=== PATIENT | male | born 1980 | race Two or more races ===

== ENCOUNTER 2018-03-10 18:38 | Emergency (ER) | payer OTHER ==
[2018-03-10] MEDS ORDERED: Clindamycin Phosphate 900 MG in Sodium Chloride 0.9% 100 ML IV ONE (19:04)
[2018-03-10] MEDS ORDERED: Sodium Chloride 0.9% 1,000 ML IV ONE ×2 (19:05→19:06)
[2018-03-10] MEDS ORDERED: Sodium Chloride 0.9% 10 ML Syringe FLUSH PRN (19:05)
[2018-03-10] MEDS ORDERED: Acetaminophen 325 MG Tab PO ONE (19:07)
[2018-03-10] MEDS ORDERED: HYDROmorphone 0.5 MG/0.5 ML SYRINGE IVPUSH ONE (19:07)
--- NOTE | 2018-03-10 19:14 | EDM.PDOC ---
ED HPI GENERAL MEDICAL PROBLEM - General Chief Complaint: Upper Extremity Injury/Pain Stated Complaint: LEFT ELBOW PAIN/INFECTION Time Seen by Provider: 03/10/18 18:53 Source of Information: Reports: Patient History Limitations: Reports: No Limitations - History of Present Illness INITIAL COMMENTS - FREE TEXT/NARRATIVE: Patient is a 37-year-old who presents the ED complaining of a red and hot swollen left elbow. Patient states he fell 2 weeks ago and had small abrasions. Sunday he hit his elbow at all at work. Developed some mild redness. Went to the walk-in clinic on Sunday and prescribed Medrol Dosepak and cephalexin. States the redness has doubled in size. Pain has worsened as well. [place] slightly warm today with no documented fever. Has been taking ibuprofen with minimal relief. He is able flex and extend at the elbow with limited range of motion secondary to pain and swelling to the posterior aspect of his elbow. He is a type II diabetic with unknown last hemoglobin A1c. There is no redness streaking up his arm. Denies any nausea/vomiting, history of MRSA, and Any additional complaints. Left Elbow Pain Score (Numeric/FACES): 10 - Related Data Allergies Allergy/AdvReac Type Severity Reaction Status Date / Time celecoxib [From Celebrex] Allergy Body Aches Verified 03/10/18 18:47 Home Meds: Home Meds Albuterol [Ventolin HFA] 2 puff INH Q4H PRN 03/10/18 [History] Cephalexin 500 mg PO QID 03/10/18 [History] Empagliflozin [Jardiance] 10 mg PO DAILY 03/10/18 [History] atorvaSTATin [Lipitor] 20 mg PO DAILY 03/10/18 [History] busPIRone [Buspar] 15 mg PO DAILY 03/10/18 [History] metFORMIN HCl [Metformin HCl] 1,000 mg PO BID 03/10/18 [History] methylPREDNISolone [Medrol] 1 tab PO ASDIRECTED 03/10/18 [History] Past Medical History Cardiovascular History: Reports: High Cholesterol Respiratory History: Reports: Asthma Psychiatric History: Reports: Anxiety Endocrine/Metabolic History: Reports: Diabetes, Type II Social & Family History - Family History Family Medical History: Noncontributory - Tobacco Use Smoking Status *Q: Never Smoker - Recreational Drug Use Recreational Drug Use: No Review of Systems - Review of Systems Review Of Systems: ROS reveals no pertinent complaints other than HPI. ED EXAM, GENERAL - Physical Exam Exam: See Below Exam Limited By: No Limitations General Appearance: Alert, WD/WN, No Apparent Distress Ears: Hearing Grossly Normal Nose: Normal Inspection Throat/Mouth: Normal Voice, No Airway Compromise Neck: Normal Inspection, Supple Respiratory/Chest: No Respiratory Distress, Lungs Clear, Normal Breath Sounds, No Accessory Muscle Use, Chest Non-Tender Cardiovascular: Normal Peripheral Pulses, Regular Rate, Rhythm, No Murmur Peripheral Pulses: 4+: Radial (L) Extremities: Other (Redness noted, circumferential to the left elbow with increased swelling posteriorly along the olecranon. No open wounds present. Increased warmth noted. Decreased range of motion noted flex extending secondary to increased swelling and pain to the left elbow. Patient has not had a septic joint. No sensory motor deficits distally.) Neurological: Alert, Oriented, CN II-XII Intact, Normal Cognition, No Motor/ Sensory Deficits Psychiatric: Normal Affect, Normal Mood Skin Exam: Warm, Dry, Intact Course - Vital Signs Last Recorded V/S: Last Vital Signs Temp 99.9 F 03/10/18 19:18 Pulse 93 03/10/18 18:43 Resp 16 03/10/18 18:43 BP 149/89 H 03/10/18 18:43 Pulse Ox 97 03/10/18 18:43 - Orders/Labs/Meds Orders: Active Orders 24 hr Category Date Time Status Peripheral IV Care [RC] . DIRECTED Care 03/10/18 19:05 Active CULTURE BLOOD [BC] Stat Lab 03/10/18 19:20 Received CULTURE BLOOD [BC] Stat Lab 03/10/18 19:35 Received Blood Culture x2 Reflex Set [OM.PC] Stat Oth 03/10/18 19:04 Ordered Peripheral IV Insertion Adult [OM.PC] Routine Oth 03/10/18 19:05 Ordered Labs: Laboratory Tests 03/10/18 03/10/18 03/10/18 Range/Units 09:05 19:05 19:05 WBC 16.39 H (4.23-9.07) K/mm3 RBC 5.32 (4.63-6.08) M/mm3 Hgb 17.1 (13.7-17.5) gm/L Hct 46.9 (40.1-51.0) % MCV 88.2 (79.0-92.2) fl MCH 32.1 (25.7-32.2) pg MCHC 36.5 H (32.2-35.5) g/dl RDW Std Deviation 39.4 (35.1-43.9) fL Plt Count 209 (163-337) K/mm3 MPV 10.0 (9.4-12.3) fl Neutrophils % (Manual) 82 H (40-60) % Band Neutrophils % 0 (0-10) % Lymphocytes % (Manual) 15 L (20-40) % Atypical Lymphs % 0 % Monocytes % (Manual) 3 (2-10) % Eosinophils % (Manual) 0 L (0.8-7.0) % Basophils % (Manual) 0 L (0.2-1.2) Toxic Granulation Few Platelet Estimate Adequate Plt Morphology Comment Normal RBC Morph Comment Normal PT 10.3 (9.5-12.1) SECONDS INR 0.94 APTT 27 (24-31) SECONDS Sodium 127 L (136-145) mEq/L Potassium 3.9 (3.5-5.1) mEq/L Chloride 91 L (98-107) mEq/L Carbon Dioxide 23 (21-32) mEq/L Anion Gap 16.9 H (5-15) BUN 18 (7-18) mg/dL Creatinine 1.2 (0.7-1.3) mg/dL Est Cr Clr Drug Dosing 96.09 mL/min Estimated GFR (MDRD) > 60 (>60) mL/min BUN/Creatinine Ratio 15.0 (14-18) Glucose 493 H (74-106) mg/dL Hemoglobin A1c (4.50-6.20) % Lactic Acid (0.4-2.0) mmol/L Calcium 9.6 (8.5-10.1) mg/dL Total Bilirubin 1.1 H (0.2-1.0) mg/dL AST 20 (15-37) U/L ALT 62 (16-63) U/L Alkaline Phosphatase 107 (46-116) U/L C-Reactive Protein 25.8 H* (<1.0) mg/dL Total Protein 7.8 (6.4-8.2) g/dl Albumin 3.7 (3.4-5.0) g/dl Globulin 4.1 gm/dL Albumin/Globulin Ratio 0.9 L (1-2) 03/10/18 03/10/18 Range/Units 19:05 19:20 WBC (4.23-9.07) K/mm3 RBC (4.63-6.08) M/mm3 Hgb (13.7-17.5) gm/L Hct (40.1-51.0) % MCV (79.0-92.2) fl MCH (25.7-32.2) pg MCHC (32.2-35.5) g/dl RDW Std Deviation (35.1-43.9) fL Plt Count (163-337) K/mm3 MPV (9.4-12.3) fl Neutrophils % (Manual) (40-60) % Band Neutrophils % (0-10) % Lymphocytes % (Manual) (20-40) % Atypical Lymphs % % Monocytes % (Manual) (2-10) % Eosinophils % (Manual) (0.8-7.0) % Basophils % (Manual) (0.2-1.2) Toxic Granulation Platelet Estimate Plt Morphology Comment RBC Morph Comment PT (9.5-12.1) SECONDS INR APTT (24-31) SECONDS Sodium (136-145) mEq/L Potassium (3.5-5.1) mEq/L Chloride (98-107) mEq/L Carbon Dioxide (21-32) mEq/L Anion Gap (5-15) BUN (7-18) mg/dL Creatinine (0.7-1.3) mg/dL Est Cr Clr Drug Dosing mL/min Estimated GFR (MDRD) (>60) mL/min BUN/Creatinine Ratio (14-18) Glucose (74-106) mg/dL Hemoglobin A1c 9.60 H (4.50-6.20) % Lactic Acid 1.5 (0.4-2.0) mmol/L Calcium (8.5-10.1) mg/dL Total Bilirubin (0.2-1.0) mg/dL AST (15-37) U/L ALT (16-63) U/L Alkaline Phosphatase (46-116) U/L C-Reactive Protein (<1.0) mg/dL Total Protein (6.4-8.2) g/dl Albumin (3.4-5.0) g/dl Globulin gm/dL Albumin/Globulin Ratio (1-2) Meds: Medications Discontinued Medications Generic Name Dose Route Start Last Admin Trade Name Thomasq PRN Reason Stop Dose Admin Acetaminophen 975 mg 03/10/18 19:07 03/10/18 19:18 Tylenol PO 03/10/18 19:08 975 mg NOW ONE Administration Hydromorphone HCl 0.5 mg 03/10/18 19:07 03/10/18 19:23 Dilaudid IVPUSH 03/10/18 19:08 0.5 mg ONETIME ONE Administration Clindamycin Phosphate 900 mg/ 106 mls @ 100 mls/hr 03/10/18 19:04 03/10/18 19 :23 Sodium Chloride IV 03/10/18 20:07 100 mls/hr ONETIME ONE Administration Sodium Chloride 1,000 mls @ 999 mls/hr 03/10/18 19:05 03/10/18 19:23 Normal Saline IV 03/10/18 20:05 999 mls/hr ONETIME ONE Administration Sodium Chloride 1,000 mls @ 999 mls/hr 03/10/18 19:06 03/10/18 19:23 Normal Saline IV 03/10/18 20:06 999 mls/hr ONETIME ONE Administration Vancomycin HCl 1 gm/ Sodium 250 mls @ 250 mls/hr 03/10/18 20:13 Chloride IV 03/10/18 21:12 ONETIME ONE Vancomycin HCl 1 gm/ Sodium 250 mls @ 250 mls/hr 03/10/18 20:18 Chloride IV 03/10/18 21:17 ONETIME ONE Vancomycin HCl 1 gm/ Sodium 250 mls @ 250 mls/hr 03/10/18 20:21 03/10/18 20: 36 Chloride IV 03/10/18 21:20 250 mls/hr ONETIME ONE Administration Vancomycin HCl 1 gm/ Sodium 250 mls @ 250 mls/hr 03/10/18 20:22 03/10/18 20: 42 Chloride IV 03/10/18 21:21 250 mls/hr ONETIME ONE Administration Sodium Chloride 10 ml 03/10/18 19:05 03/10/18 19:18 Saline Flush FLUSH 10 ml ASDIRECTED PRN Administration Keep Vein Open - Re-Assessments/Exams Free Text/Narrative Re-Assessment/Exam: IV established with IV clindamycin 900mg, tylenol 975mg PO, and dilaudid 0.5mg IVP. Initial labs and studies include: CBC, chem 14, CRP, blood cultures 2, lactic acid, A1C, and coag studies. Will await for Cr prior to starting vancomycin. Initially I was going with zyvox but was a level 1 contraindication with buspar. Will await for labs prior to calling Dr. Jimenez for admission. Patient has cellulitis and not a septic joint. Labs reviewed: Patient has a leukocytosis with no left shift. Sodium is 127, potassium 3.9, AG 16.9, creatinine 1.2, glucose 193, hemoglobin A1c is 9.60, CRP is 25.8. 03/10/18 20:01 I did speak with Dr. Jimenez and discussed the patient with her. She will see the patient in the ED. X-ray of the left elbow did not reveal any acute bony abnormalities. Final interpretation is pending. Reviewed with Dr. Singletary. 03/10/18 20:15 Dr. Jimenez and myself did evaluate the patient together. Ultrasound of the left elbow by me at bedside obtained with no obvious fluid collection. Dr. Jimenez requests transferring to [place] since we do not have [facility] coverage. Patient requests [facility]. I have ordered vancomycin 2 grams IV. 2019 Called [facility] and they will call back when Dr. Story calls back. [address] Story. He has accepted the patient. Discussed patient wanting to be transported via POV due the high cost of ambulance transport. He is okay with this. Patient does have a ride to [place]. Will discharge patient from the E.D. with instructions to go to [facility] to be admitted for cellulitis of the right elbow requiring IV antibiotics. Patient agrees with plan and has no additional questions or concerns. 03/10/18 21:05 Nursing staff has brought to my attention. Patient complaining of rash from the vancomycin. Dr. Singletary is present and believes this is related to red man's syndrome and instructed him to slow it down by 1/2. Patient's vitals are stable. He is not short of breath and does not complaining of a sensation of his throat closing shut or difficulty swallowing. Will continue monitor. [id number] Patient experiencing stinging sensation from the IV vancomycin. No rash present. Has approximately 30 mls or less left. Will discontinue and discharge for transport to [facility] via POV. Departure - Departure Time of Disposition: 21:01 Disposition: DC/Tfer to Acute Hospital 02 Condition: Fair Clinical Impression: Cellulitis of left elbow - Discharge Information Instructions: Cellulitis, Adult, Pain Medicine Instructions, [id number] Referrals: Juhi Byrne, [employer] [Primary Care Provider] - Forms: ED Department Discharge Additional Instructions: Dr. Story Hospitalists at [facility] has accepted you. Go to the [facility] main lobby for admission. No driving since receiving a pain medication with admission. Go directly to the hospital. They are expecting you within in the next 2 hrs. - My Orders Last 24 Hours: My Active Orders 03/10/18 19:04 Blood Culture x2 Reflex Set [OM.PC] Stat 03/10/18 19:05 Peripheral IV Care [RC] . DIRECTED Peripheral IV Insertion Adult [OM.PC] Routine 03/10/18 19:20 CULTURE BLOOD [BC] Stat 03/10/18 19:35 CULTURE BLOOD [BC] Stat - Assessment/Plan Last 24 Hours: My Active Orders 03/10/18 19:04 Blood Culture x2 Reflex Set [OM.PC] Stat 03/10/18 19:05 Peripheral IV Care [RC] . DIRECTED Peripheral IV Insertion Adult [OM.PC] Routine 03/10/18 19:20 CULTURE BLOOD [BC] Stat 03/10/18 19:35 CULTURE BLOOD [BC] Stat
--- NOTE | 2018-03-11 08:36 | CR ---
Left elbow: Four views of the left elbow were obtained. Comparison: No previous study. Soft tissue swelling is noted. Olecranon spur is noted at the attachment of the triceps tendon to the olecranon process. No focal erosions are seen. No fracture or other abnormality is seen. Impression: 1. Soft tissue swelling. 2. Incidental olecranon spur. 3. No acute bony abnormality is identified. Diagnostic code #3
== END 2018-03-10 22:50 ==
LOC: JD.ED 18:38
DX: L03.114 Cellulitis of left upper limb (principal); E11.9 Type 2 diabetes mellitus without complications; E78.00 Pure hypercholesterolemia, unspecified; J45.909 Unspecified asthma, uncomplicated; Z88.8 Allergy status to other drugs, medicaments and biological substances; Z79.899 Other long term (current) drug therapy; Z79.84 Long term (current) use of oral hypoglycemic drugs
CPT/HCPCS: 36415; 73080; 80053; 83036; 83605; 85007; 85027; 85610; 85730; 86140; 87040; 96365; 96366; 96367; 96375; 99285; A9270; J1170; J3370; J7030; J7040; J7050

== ENCOUNTER 2019-12-20 14:03 | Emergency (ER) | payer OTHER ==
[2019-12-20] MEDS ORDERED: Lidocaine 1% 10 ML MDV INJECT ONE (14:40)
--- NOTE | 2019-12-20 14:43 | EDM.PDOC ---
ED HPI GENERAL MEDICAL PROBLEM - General Chief Complaint: Upper Extremity Injury/Pain Stated Complaint: LT THUMB LAC Time Seen by Provider: 12/20/19 14:30 Source of Information: Reports: Patient History Limitations: Reports: No Limitations - History of Present Illness INITIAL COMMENTS - FREE TEXT/NARRATIVE: Patient is a 39-year-old male who presents with complaints of a laceration to the distal end of his left thumb. Patient states that he was cutting on a miter saw when the blade cut his finger. He is up-to-date on his tetanus vaccination. Left Finger-Thumb Pain Score (Numeric/FACES): 6 - Related Data Allergies Allergy/AdvReac Type Severity Reaction Status Date / Time atorvastatin [From Lipitor] Allergy Body Aches Verified 12/20/19 14:21 celecoxib [From Celebrex] Allergy Body Aches Verified 12/20/19 14:21 Home Meds: Home Meds busPIRone [Buspar] 15 mg PO DAILY PRN 03/10/18 [History] metFORMIN HCl [Metformin HCl] 1,000 mg PO BID 03/10/18 [History] Acyclovir. 1 tab PO TID 12/20/19 [History] Doxycycline [Vibramycin] 100 mg PO BID 10 Days #19 cap 12/20/19 [Rx] traMADol [Ultram] 1 tab PO Q6H PRN 12/20/19 [History] Past Medical History Cardiovascular History: Reports: High Cholesterol Respiratory History: Reports: Asthma Psychiatric History: Reports: Anxiety Endocrine/Metabolic History: Reports: Diabetes, Type II Social & Family History - Family History Family Medical History: Noncontributory - Recreational Drug Use Recreational Drug Use: No Review of Systems - Review of Systems Review Of Systems: Comprehensive ROS is negative, except as noted in HPI. ED EXAM, GENERAL - Physical Exam Exam: See Below Exam Limited By: No Limitations General Appearance: Alert, WD/WN, No Apparent Distress Respiratory/Chest: No Respiratory Distress, Lungs Clear, Normal Breath Sounds, No Accessory Muscle Use, Chest Non-Tender Cardiovascular: Normal Peripheral Pulses, Regular Rate, Rhythm, No Edema, No Gallop, No JVD, No Murmur, No Rub Skin Exam: Other (1.5 cm laceration to the distal tip of his left thumb. Laceration includes a small portion of the fingernail tip, but there is no damage to the nailbed itself.) ED TRAUMA EXTREMITY PROCEDURES - Laceration/Wound Repair Left Digit - 1st (Thumb) Lac/Wound Length In cm: 1.5 Appearance: Subcutaneous Distal NVT: Neuro & Vascular Intact Anesthetic Type: Local Local Anesthesia - Lidocaine (Xylocaine): 1% Plain Local Anesthetic Volume: 2cc Skin Prep: Chlorhexidine (Hibiciens), Saline, Sterile Drape Saline Irrigation (cc's): 200 Exploration/Debridement/Repair: Wound Explored, In a Bloodless Field Closed With: Sutures Suture Size: 3-0 # of Sutures: 5 Suture Type: Nylon Sterile Dressing Applied: Nurse Tetanus Status Addressed: Yes Complications: No Course - Vital Signs Last Recorded V/S: Last Vital Signs Temp 98.3 F 12/20/19 14:24 Pulse 94 12/20/19 14:24 Resp 16 12/20/19 14:24 BP 150/102 H 12/20/19 14:24 Pulse Ox 98 12/20/19 14:24 - Orders/Labs/Meds Orders: Active Orders 24 hr Category Date Time Status Fingers Thumb Lt FA [CR] Stat Exams 12/20/19 14:35 Taken Meds: Medications Discontinued Medications Generic Name Dose Route Start Last Admin Trade Name Freq PRN Reason Stop Dose Admin Doxycycline Hyclate 100 mg 12/20/19 15:21 Vibramycin PO 12/20/19 15:22 ONETIME ONE Lidocaine HCl 10 ml 12/20/19 14:40 Xylocaine 1% INJECT 12/20/19 14:41 ONETIME ONE - Re-Assessments/Exams Free Text/Narrative Re-Assessment/Exam: 12/20/19 15:21 X-ray of the left thumb showed no obvious fractures, however with the vicinity of the laceration to the bone, we will treat with doxycycline twice daily for 10 days prophylactically. See procedure notes for wound closure. Patient states that his Tdap was done in 2018. Discharge instructions as documented. Departure - Departure Time of Disposition: 15:23 Disposition: Home, Self-Care 01 Condition: Good Clinical Impression: Laceration of thumb Qualifiers: Encounter type: initial encounter Damage to nail status: without damage Foreign body presence: without foreign body Laterality: left Qualified Code(s): S61.012A - Laceration without foreign body of left thumb without damage to nail , initial encounter - Discharge Information *PRESCRIPTION DRUG MONITORING PROGRAM REVIEWED*: No *COPY OF PRESCRIPTION DRUG MONITORING REPORT IN PATIENT JOHN: No Prescriptions: Doxycycline [Vibramycin] 100 mg PO BID 10 Days #19 cap Instructions: Laceration Care, Adult, [id number] Referrals: Willow Sharif PA-C [Primary Care Provider] - Forms: ED Department Discharge, ED Return to Work/School Form Additional Instructions: You were seen in the emergency department today for a laceration to your left thumb. X-rays were done which showed no obvious fracture to the bone. The wound was cleansed and closed with 5 sutures. These should remain intact for 10 days. After that time they may be removed in either clinic here in [facility]. You have been started on an antibiotic, doxycycline, in order to prevent infection. Take this medication as prescribed. If there is a chance the wound may become contaminated, recommend that you keep it covered with a Band-Aid. Otherwise you may leave it open to air. Clean it twice daily with normal soap and water. Do not submerge your hand in water. Watch for signs of infection including increased redness, swelling, or purulent drainage. If these should occur, recommend that you be seen either in the clinic or in the emergency department. Sepsis Event Note - Evaluation Sepsis Screening Result: No Definite Risk - Focused Exam Vital Signs: Vital Signs Temp Pulse Resp BP Pulse Ox 12/20/19 14:24 98.3 F 94 16 150/102 H 98 Date Exam was Performed: 12/20/19 Time Exam was Performed: 15:46 - My Orders Last 24 Hours: My Active Orders 12/20/19 14:35 Fingers Thumb Lt FA [CR] Stat - Assessment/Plan Last 24 Hours: My Active Orders 12/20/19 14:35 Fingers Thumb Lt FA [CR] Stat
[2019-12-20] MEDS ORDERED: Doxycycline 100 MG Cap PO ONE (15:21)
--- NOTE | 2019-12-21 13:51 | CR ---
Left thumb: Four views of the left thumb were obtained. Comparison: No previous thumb study. Joint spaces are preserved. No fracture, dislocation or other bony abnormality is appreciated. Impression: 1. No abnormality is identified on left thumb study. Diagnostic code #1 Study was dictated in [place] Standard Time
== END 2019-12-20 15:35 | disposition home or self-care (01) ==
LOC: JD.ED 14:03
DX: S61.012A Laceration without foreign body of left thumb without damage to nail, initial encounter (principal); E78.00 Pure hypercholesterolemia, unspecified; J45.909 Unspecified asthma, uncomplicated; F41.9 Anxiety disorder, unspecified; E11.9 Type 2 diabetes mellitus without complications; Z88.8 Allergy status to other drugs, medicaments and biological substances; Z79.84 Long term (current) use of oral hypoglycemic drugs; Z79.899 Other long term (current) drug therapy; W27.0XXA Contact with workbench tool, initial encounter
CPT/HCPCS: 12001; 73140; 99283; A9270; J2001